=== PATIENT | male | born 1980 | race Caucasian/White ===

== ENCOUNTER 2021-09-21 12:16 | Emergency (ER) | payer OTHER, SELFPAY ==
[2021-09-21 12:17] VITALS: BP 144/99; PULSE 113; RESP 16; TEMP 36.2; O2SAT 99; BMI 31.0
--- NOTE | 2021-09-21 12:21 | CT_ITS ---
EXAM: CT HEAD WITHOUT INTRAVENOUS CONTRAST : 1980 CLINICAL INDICATION: HEADACHE -- IN WAITING ROOM TECHNIQUE: Multiple axial images were obtained of the head without intravenous contrast. This CT exam was performed using one or more of the following dose reduction techniques: automated exposure control, adjustment of the mA and/or kV according to patient size, and/or use of iterative reconstruction technique. This report was created using [employer] report generation technology. COMPARISON: None. FINDINGS: BRAIN AND EXTRA-AXIAL SPACES: Unremarkable. No intra- or extra-axial hemorrhage. No evidence of acute infarct. No intracranial mass or mass effect. There is preservation of the meraz/white matter interface. Posterior fossa structures are unremarkable. Ventricles are appropriate for age. No hydrocephalus. Basal cisterns are patent. BONES/JOINTS: Unremarkable. No discrete lytic or blastic abnormalities. SINUSES: Unremarkable as visualized. Clear. MASTOID AIR CELLS: Unremarkable. Clear. ORBITS: Visualized globes, extraocular muscles, optic nerves and retrobulbar fat appear unremarkable. CT/Brain/Head without Contrast IMPRESSION: Normal CT brain without contrast. Individualized dose optimization techniques were used for this CT. at 1247 Reported and signed by: Ric Marcelino MD Electronically Signed: Ric Marcelino MD at 12:46 EST Tel , Service support ,
--- NOTE | 2021-09-21 15:40 | EX.ED.VIS.HA ---
HPI History of Present Illness Chief Complaint: Headache Informant: patient Onset/Context/Timing Onset: Hours (3-4) Context: Gradual and Onset Timing: Continuous Quality -Headache: Positive for Throbbing Location: middle-left of head and left retroorbital Current Severity: Moderate Maximum Severity: Moderate Worsened by: light Relieved by: nothing Associated Symptoms/Injury Associated Symptoms: Positive for Nausea (gone), Numbness, Tingling, Visual Changes (spots at one point, gone now), Blurred Vision and Photophobia; Negative for Vomiting and Visual Loss Injury - TODD: Negative for Direct Trauma, Fall and Assault Narrative Narrative: Patient has had a migraine like this once in the past it was years ago he does not get them frequently, this 1 involved trouble speaking as well as weakness and numbness in both legs feeling wobbly because of it without fall, as well as tingling throughout his entire face and numbness in his right arm. He also felt a little disoriented because of the trouble speaking. All of the neurologic symptoms are resolved now, the headache still remains, his vision is a little blurry, and he is a little photophobic but otherwise feeling okay. He denies any recent injury, illness, or drug use. He takes lisinopril for blood pressure, and no other medications, this started while he was at work, he was not doing anything unusual compared to a typical day. Again he did say that he had this happen before once, with neurologic symptoms, but not quite to this extent. He does not member the details of that as it was years ago. [facility] Medical History HTN (hypertension) Migraine Home Medications lisinopril 40 mg PO DAILY 09/21/21 [History Last Taken Unknown] metoclopramide HCl 10 mg PO Q6H PRN #20 tab 09/21/21 [Rx Last Taken Unknown] Allergy/AdvReac Type Severity Reaction Status Date / Time No Known Allergies Allergy Verified 09/21/21 12:19 Social History Smoking Status: Never smoker ROS ROS ED Constitutional Constitutional ED: Denies chills or fever(s) Eyes Eyes: Reports blurry vision; Denies diplopia ENT ENT ED: Denies ear pain or sore throat Cardiovascular Cardiovascular: Denies chest pain or palpitations Respiratory/Chest Respiratory/Chest: Denies cough or dyspnea Gastrointestinal Gastrointestinal: Reports nausea and vomiting; Denies abdominal pain or diarrhea Genitourinary Genitourinary ED: Denies dysuria or urinary frequency Musculoskeletal Musculoskeletal: Denies back pain or myalgias Integumentary Denies abscess or rash Neurologic Neurologic: Reports as per HPI, headache(s), paresthesias and weakness EXAM Physical Exam Const Vital Signs: 09/21/21 12:17 09/21/21 16:38 09/21/21 16:40 Temperature 97.2 F L Temperature Source Temporal Pulse Rate 113 H 89 92 Respiratory Rate 16 18 16 Blood Pressure 144/99 H 123/87 H Blood Pressure Mean 114 99 Pulse Ox 99 98 98 Oxygen Delivery Method Room Air Room Air Room Air HEENT Reports normocephalic and moist mucous membranes HEENT Narrative: Poor dentition atraumatic Eyes PERRL, EOMs intact bilaterally and conjunctivae normal Eyes Narrative: mild photophobia Neck no lymphadenopathy, supple and no meningeal signs Resp normal respiratory effort and clear to auscultation bilaterally GI non-tender and non-distended Palpation: soft Extremity normal to inspection and full ROM Neuro oriented x3, CN's II-XII intact bilaterally, no focal motor deficits and no sensory deficits noted Neuro Narrative: Normal [id number] and [id number] bilaterally. No facial droop. Normal gait. Normal speech. NIHSS 0. Mary Coma Scale: document GCS findings Spontaneous Obeys Commands Oriented 15 Sensorium / Orientation: awake and alert Speech: speech normal Gait (Neuro): normal gait Motor Exam: strength 5/5 throughout Psych mental status grossly normal Skin Lesions: no lesions Rashes: no rashes MDM MDM MDM Narrative Medical decision making narrative: CT obtained, negative for anything acute. Given the symptoms I do suspect this was migraine with neurologic symptoms. His neurologic exam is normal now and he also states that he is thinking clearly and speaking normally, which he is on exam as well. He is given Toradol and Reglan IM and on reevaluation his headache is significantly better, still a little present but he would like to go home. Referred to neurology and given a prescription for Reglan, given appropriate instructions to return. Radiography Diagnostic Testing: Clinical Impression(s) from Imaging Studies Brain CT 09/21/21 12:21 IMPRESSION: Normal CT brain without contrast. Individualized dose optimization techniques were used for this CT. at 1247 Reported and signed by: Ric Marcelino MD Electronically Signed: Ric Marcelino MD at 12:46 EST Tel , Service support , Discharge Plan Triage Chief Complaint: Headache ED Provider: Rivera Benítez Dx/Rx/DC Orders Clinical Impression: Headache, migraine Instructions: ED, Migraine (Classical) Prescriptions: New metoclopramide HCl [metoclopramide HCl] 10 MG tablet 10 mg PO Q6H PRN (Reason: nausea and vomiting) Qty: 20 RF: 0 No Action lisinopril 40 mg Tablet 40 mg PO DAILY RF: 0 Primary Care Provider: Mohit Andrew,Out of Referrals: Liang Shi MD [STAFF PHYSICIAN] - As soon as possible (call for appt) Mohit Andrew,Out of [Primary Care Provider] - Disposition Disposition: Home, Self Care
[2021-09-21] MEDS: Ketorolac 60 MG/2 ML Vial IM (16:25)
[2021-09-21] MEDS: Metoclopramide 10 MG/2 ML Vial IM (16:25)
[2021-09-21 16:38] VITALS: PULSE 89; RESP 18; O2SAT 98
[2021-09-21 16:40] VITALS: BP 123/87; PULSE 92; RESP 16; O2SAT 98
[2021-09-21 18:24] VITALS: PULSE 74; RESP 16; O2SAT 97
== END 2021-09-21 18:24 | disposition home or self-care (01) ==
PROVIDERS: Emergency Provider Emergency Medicine; Visit Provider Emergency Medicine
DX: G43.909 Migraine, unspecified, not intractable, without status migrainosus (principal); I10 Essential (primary) hypertension; Z79.899 Other long term (current) drug therapy
CPT/HCPCS: 70450; 96372; 99282

== ENCOUNTER → 2022-05-19 | Outpatient (CLI) | payer OTHER, SELFPAY ==
[2022-05-19 14:57] LABS: Hematocrit 41.3 % (40-54); Hemoglobin 13.6 g/dL (13.0-16.5); Mean Corp Hgb Conc 32.9 g/dL (32-36); Mean Corpuscular Hgb 30.6 pg (27.0-32.0); Mean Corpuscular Volume 92.8 fL (80-94); Mean Platelet Vol. 11.1 fl (6.2-12.0); Platelet Count 342 K/mm3 (150-450); RBC Distribution Width CV 12.9 % (11.6-14.6); RBC Distribution Width SD 43.9 fl (35.1-43.9); Red Blood Count 4.45 M/mm3 (4.6-6.2); White Blood Count 8.1 K/mm3 (4.4-11.0)
[2022-05-19 15:30] LABS: ALB/GLOB Ratio 1.3 RATIO (0.9-2.4); AST(SGOT) 22 U/L (15-37); Alanine Aminotransfer ALT/SGPT 51 U/L (16-61); Albumin, Serum 4.4 g/dL (3.2-5.0); Alkaline Phosphatase 80 U/L (45-117); Anion Gap 9 (5-15); BUN 10 mg/dL (7-18); BUN/Creat Ratio 8.7 RATIO (10-20); Calcium,Total 9.3 mg/dL (8.5-10.1); Chloride 102 mmol/L (98-107); Creatinine, Serum 1.15 mg/dL (0.70-1.30); EST Glomerular Filtration Rate 74 mL/min (>60); Est Glom Filt Rate - Afr Amer 90 mL/min (>60); Globulin 3.4 g/dL (2.2-4.2); Glucose 81 mg/dL (74-106); Potassium 4.2 mmol/L (3.5-5.1); Protein, Total 7.8 g/dL (6.4-8.2); Sodium Level 138 mmol/L (136-145); Thyroid Stim Hormone (TSH) 1.52 uIU/mL (0.358-3.74)
== END | disposition home or self-care (01) ==
LOC: MTLAB 11:27
PROVIDERS: Referring Provider Psychiatry & Neurology Neurology; Visit Provider Psychiatry & Neurology Neurology
DX: I10 Essential (primary) hypertension (principal); G43.109 Migraine with aura, not intractable, without status migrainosus
CPT/HCPCS: 36415; 80053; 84443; 85027